=== PATIENT | male | born 1970 | race Caucasian/White ===

== ENCOUNTER 2024-05-15 06:36 | Emergency (ER) | payer MEDICAID ==
[~2024-05-15] VITALS: Ht 167.6 cm; Wt 70.0 kg
[2024-05-15 06:37] VITALS: O2SAT 98
[2024-05-15] MEDS: ONDANSETRON HCL 4MG/2ML INJ IV STA (07:07)
[2024-05-15] MEDS: PANTOPRAZOLE SODIUM 40 MG/VIAL IV STA (07:07)
[2024-05-15 07:13] LABS: BASOPHILS % 0.5 % (0.0-2.0); EOSINOPHILS % 2.9 % (0.0-5.0); HEMATOCRIT. 45.7 % (42.0-52.0); HEMOGLOBIN. 15.8 g/dL (14.0-18.0); MEAN CORPUSCULAR HEMOGLOBIN 34.2 pg (28.0-32.0); MEAN CORPUSCULAR HGB CONC 34.5 g/dL (31.0-37.0); MEAN CORPUSCULAR VOLUME 99.2 fL (80.0-94.0); MEAN PLATELET VOLUME 6.2 fl (7.4-10.4); MONOCYTES % 5.8 % (2.0-8.0); NEUTROPHILS % 81.8 % (40.0-76.0); PLATELET 286 x1000/uL (130-400); RED BLOOD CELL COUNT 4.61 mill/uL (4.7-6.1); RED CELL DISTRIBUTION WIDTH 14.2 % (11.6-14.6); WHITE BLOOD COUNT 6.9 x1000/uL (4.5-11.0)
[2024-05-15] MEDS: LORAZEPAM 2MG/ML INJ IV ONE (07:13)
[2024-05-15] MEDS: SODIUM CHLORIDE 0.9% 1,000 ML IV ONE (07:13)
[2024-05-15 07:14] LABS: CHLORIDE 99 mEq/L (98-107); POTASSIUM 4.3 mEq/L (3.5-5.1); SODIUM 135 mEq/L (136-145)
[2024-05-15 07:16] LABS: CALCIUM 9.3 mg/dL (8.7-10.4); CARBON DIOXIDE 26 mEq/L (21-32)
[2024-05-15 07:20] LABS: PROTHROMBIN TIME 10.7 sec (9.6-11.0)
[2024-05-15 07:21] LABS: CREATININE 0.8 mg/dL (0.6-1.3); GLUCOSE 91 mg/dL (70-105)
[2024-05-15 07:22] LABS: UREA NITROGEN BLOOD < 5 mg/dL (9-23)
[2024-05-15 07:23] LABS: ALANINE AMINOTRANSFERASE 47 IU/L (10-49); ALBUMIN 4.9 g/dL (3.2-4.8); ASPARTATE AMINOTRANSFERASE 67 IU/L (<34); BILIRUBIN DIRECT 0.3 mg/dL (<=3.0); PROTEIN TOTAL 7.9 g/dL (6.0-8.3)
[2024-05-15 08:25] VITALS: BP 109/73; PULSE 79; RESP 14; TEMP 36.66960; O2SAT 99
[2024-05-15] MEDS ORDERED: ONDA-239 PO (08:31)
[2024-05-15] MEDS ORDERED: CHLO25CA10 MT (08:31)
== END 2024-05-15 08:44 | disposition home or self-care (01) ==
LOC: ER 06:36
DX: F10.10 Alcohol abuse, uncomplicated (principal); Y90.9 Presence of alcohol in blood, level not specified
CPT/HCPCS: 99284; 96365; 96375; 80076; 80048; 83690; 85025; 85610; 36415; J2060; J2405; J2470; J7030

== ENCOUNTER 2025-05-08 22:03 | Emergency (ER) | payer MEDICAID ==
[~2025-05-08] VITALS: Ht 167.6 cm; Wt 64.0 kg
[~2025-05-08 22:03] MED LIST: CYAN-50 PO; FOLI-43 PO; PANT40TA51 PO; THIA100T72 MT
[2025-05-08 22:08] VITALS: TEMP 36.8; O2SAT 99
[2025-05-08] MEDS ORDERED: ALPRAZOLAM 0.5 MG TABLET PO ONE (22:45)
[2025-05-08 23:05] LABS: ADD RBC MORPHOLOGY YES; BASOPHILS % 0.8 % (0.0-2.0); EOSINOPHILS % 2.7 % (0.0-5.0); HEMATOCRIT. 38.3 % (42.0-52.0); HEMOGLOBIN. 12.6 g/dL (14.0-18.0); LYMPHOCYTES % 23.5 % (20.0-50.0); MEAN PLATELET VOLUME 5.8 fl (7.4-10.4); MONOCYTES % 6.8 % (2.0-8.0); NEUTROPHILS % 66.2 % (40.0-76.0); PLATELET 321 x1000/uL (130-400); RED BLOOD CELL COUNT 4.56 mill/uL (4.7-6.1); RED CELL DISTRIBUTION WIDTH 22.2 % (11.6-14.6)
[2025-05-08 23:15] LABS: PLATELET ESTIMATE NORMAL
[2025-05-08 23:19] LABS: CREATININE 0.8 mg/dL (0.6-1.3); UREA NITROGEN BLOOD < 5 mg/dL (9-23)
[2025-05-08 23:20] LABS: ETHANOL BLOOD 212 mg/dL (<10)
[2025-05-08 23:21] LABS: ASPARTATE AMINOTRANSFERASE 28 IU/L (<34)
[2025-05-08 23:22] LABS: BILIRUBIN TOTAL 0.6 mg/dL (0.1-1.0); PROTEIN TOTAL 7.0 g/dL (6.0-8.3)
[2025-05-08] MEDS: ALPRAZOLAM 0.25 MG TABLET PO NR (23:59)
[2025-05-09 00:02] VITALS: BP 116/82; PULSE 84; RESP 22; O2SAT 100
== END 2025-05-09 00:34 | disposition home or self-care (01) ==
LOC: ER 22:03
DX: F10.229 Alcohol dependence with intoxication, unspecified (principal); F41.9 Anxiety disorder, unspecified; Z79.899 Other long term (current) drug therapy; Y90.9 Presence of alcohol in blood, level not specified
CPT/HCPCS: 36415; 80053; 80320; 85025; 99283; G0480